=== PATIENT | female | born 1980 | race Caucasian/White ===

== ENCOUNTER 2017-06-08 13:40 | Outpatient (CLI) | payer BC ==
[~2017-06-08] VITALS: Ht 177.8 cm; Wt 112.9 kg
[~2017-06-08 13:40] MED LIST: ACHYD1T PO; CLC500CT PO; DCS100C PO; IBP800T PO; PREN-115 PO
[2017-06-08 14:00] VITALS: BP 115/74
[2017-06-08] MEDS ORDERED: D5 LR IV SOLUTION 1,000 ML IV SCH (14:45)
[2017-06-08 15:08] LABS: BASOPHILS % (AUTO) 0 % (0-10); EOSINOPHILS # (AUTO) 0.1 10^3/uL (0.0-0.3); EOSINOPHILS % (AUTO) 1 % (0-10); HEMATOCRIT 34 % (35-52); HEMOGLOBIN 11.6 G/DL (11.5-16.0); LYMPHOCYTES # (AUTO) 1.1 X 10^3 (1.0-4.0); LYMPHOCYTES % (AUTO) 13 % (12-44); MEAN CORPUSCULAR HEMOGLOBIN 31 PG (25-34); MEAN CORPUSCULAR HGB CONC 35 G/DL (32-36); MEAN CORPUSCULAR VOLUME 90 FL (80-99); MEAN PLATELET VOLUME 10.8 FL (7.4-10.4); MONOCYTES # (AUTO) 0.8 X 10^3 (0.0-1.0); MONOCYTES % (AUTO) 9 % (0-12); NEUTROPHILS # (AUTO) 6.8 X 10^3 (1.8-7.8); NEUTROPHILS % (AUTO) 78 % (42-75); PLATELET COUNT 245 10^3/uL (130-400); RED BLOOD COUNT 3.72 10^6/uL (4.35-5.85); RED CELL DISTRIBUTION WIDTH 13.4 % (10.0-14.5); WHITE BLOOD COUNT 8.7 10^3/uL (4.3-11.0)
[2017-06-08 15:32] LABS: ALANINE AMINOTRANSFERASE 13 U/L (0-55); ALBUMIN 3.4 GM/DL (3.2-4.5); ALKALINE PHOSPHATASE 85 U/L (40-136); BILIRUBIN,TOTAL 0.8 MG/DL (0.1-1.0); BUN/CREATININE RATIO 10; CALCIUM 9.2 MG/DL (8.5-10.1); CARBON DIOXIDE 20 MMOL/L (21-32); CHLORIDE 106 MMOL/L (98-107); CREATININE SERUM 0.58 MG/DL (0.60-1.30); GFR ESTIMATED > 60; GLUCOSE 94 MG/DL (70-105); POTASSIUM 3.7 MMOL/L (3.6-5.0); SODIUM 137 MMOL/L (135-145); TOTAL PROTEIN 6.3 GM/DL (6.4-8.2); URIC ACID 4.5 MG/DL (2.6-7.2)
--- NOTE | 2017-06-11 15:51 | Physician Query-Final Dx ---
MAGALY MAHAN 06/11/17 1551: Clinic Account Progress/Dx Physician Query: Please give diagnosis Date of Service Jun 08, 2017 at 13:40 MANISHA BARRIENTOS MD 06/12/17 0802: Clinic Account Progress/Dx DIAGNOSIS: Diagnosis false labor MAGALY MAHAN Jun 11, 2017 15:51 MANISHA BARRIENTOS MD Jun 12, 2017 08:02
== END 2017-06-08 17:00 | disposition home or self-care (01) ==
LOC: LDRP 13:40 → WSo 13:40
PROVIDERS: ATTEND Obstetrics & Gynecology
DX: O47.1 False labor at or after 37 completed weeks of gestation (principal); Z3A.37 37 weeks gestation of pregnancy
CPT/HCPCS: 36415; 80053; 82570; 83615; 84156; 84550; 85025; 96360; 96361; 99214

== ENCOUNTER 2017-06-11 11:50 | Inpatient (IN) | payer BC ==
[~2017-06-11] VITALS: Ht 177.8 cm; Wt 112.0 kg
[2017-06-11 12:30] VITALS: BP 121/75
[2017-06-11 12:45] LABS: BILIRUBIN,URINE NEGATIVE (NEGATIVE); CLARITY,URINE CLEAR; COLOR,URINE YELLOW; GLUCOSE, URINE (UA) NEGATIVE (NEGATIVE); KETONES,URINE NEGATIVE (NEGATIVE); LEUKOCYTE ESTERASE ,URINE 1+ (NEGATIVE); NITRITE,URINE NEGATIVE (NEGATIVE); PH,URINE 8 (5-9); PROTEIN,URINE NEGATIVE (NEGATIVE); UROBILINOGEN,URINE NORMAL (NORMAL)
[2017-06-11 12:58] LABS: WBC,URINE 0-2 /HPF
[2017-06-11 12:59] LABS: BACTERIA,URINE MODERATE /HPF
[2017-06-11] MEDS ORDERED: LACTATED RINGERS 1,000 ML IV PRN (13:05)
[2017-06-11] MEDS ORDERED: METOCLOPRAMIDE INJ 10 MG/2 ML (REGLAN) IV ONE (13:15)
[2017-06-11] MEDS ORDERED: FAMOTIDINE 20MG/2ML IV (PEPCID) IV ONE (13:15)
[2017-06-11] MEDS ORDERED: CITRIC ACID/SOB CIT (BICITRA) 30 ML UDC PO ONE (13:15)
[2017-06-11] MEDS ORDERED: CATHETER FLUSH 10 ML SYR IV PRN (13:15)
--- OUTSIDE RECORDS SUMMARY | 2017-06-11 14:29 | XMS REPORT | Continuity of Care Document ---
Author Author [facility] Organization [facility] Address Unknown Phone Unavailable Allergies Active Description Code Type Severity Reaction Onset Reported/Identified Relationship to Patient Clinical Status Yes amoxicillin [id number] Drug Allergy Unknown N/A 11/13/2012 Yes ibuprofen [id number] Drug Allergy Unknown N/A 11/13/2012 Yes Nicotine Polacrilex [id number] Drug Allergy Unknown N/A 11/13/2012 Yes phenytoin sodium [id number] Drug Allergy Unknown N/A 11/13/2012 Yes Phenytoin Sodium Extended [id number] Drug Allergy Unknown N/A 11/13/2012 Yes sulfamethoxazole [id number] Drug Allergy Unknown N/A 11/13/2012 Yes trimethoprim [id number] Drug Allergy Unknown N/A 11/13/2012 Medications There is no data. Problems Date Dx Coded Attending Type Code Diagnosis Diagnosed By 11/16/2012 MANISHA BARRIENTOS MD Ot 642.41 MILD/NOS PREECLAMP-DELIV 11/16/2012 MANISHA BARRIENTOS MD Ot 652.51 HIGH HEAD AT TERM-DELIV 11/16/2012 MANISHA BARRIENTOS MD Ot 653.41 FETOPELV DISPROPOR-DELIV 11/16/2012 MANISHA BARRIENTOS MD Ot 660.01 OBSTRUC/FET MALPOS-DELIV 11/16/2012 MANISHA BARRIENTOS MD Ot 660.11 BONY PELV OBSTRUCT-DELIV 11/16/2012 MANISHA BARRIENTOS MD Ot 661.21 UTERINE INERT NEC-DELIV 11/16/2012 MANISHA BARRIENTOS MD Ot V07.2 PROPHYLACT IMMUNOTHERAPY 11/16/2012 MANISHA BARRIENTOS MD Ot V27.0 DELIVER-SINGLE LIVEBORN 01/17/2016 MANISHA BARRIENTOS MD, Ot 642.43 MILD/NOS PREECLAMP-ANTEP 01/17/2016 MANISHA BARRIENTOS MD Ot V28.9 SCREENING NOS 03/30/2017 MANISHA BARRIENTOS MD Ot 642.43 MILD/NOS PREECLAMP-ANTEP 03/30/2017 MANISHA BARRIENTOS MD, Ot V28.9 SCREENING NOS 04/05/2017 MANISHA BARRIENTOS MD Ot O36.0930 MATERNAL CARE FOR OTH RHESUS ISOIMMUN, T 04/16/2017 MANISHA BARRIENTOS MD, Ot O36.0930 MATERNAL CARE FOR OTH RHESUS ISOIMMUN, T Procedures Code Description Performed By Performed On 73.4 MEDICAL INDUCTION LABOR 11/13/2012 74.1 LOW CERVICAL 11/13/2012 Results Test Result Range RH IMMUNE GLOBULIN RHOPHYLAC - 03/30/17 14:54 RH IMMUNE GLOBULIN RHOPHYLAC PRSMD TRFSD 03/30/17 1507 NRG [id number] - 03/30/17 14:54 [id number] 1 300ug NRG Lot number - 03/30/17 14:54 Lot number [id number] NRG cell screen - 03/30/17 14:54 cell screen 12/21/18 NRG Urine protein/creatinine mass ratio - 06/08/17 14:20 Urine protein measurement (mass/volume) 15 mg/dL 6-12 Urine creatinine measurement (mass/volume) 179 mg/dL 30- 125 Urine protein/creatinine mass ratio 0.08 NRG Complete blood count (CBC) with automated white blood cell (WBC) differential - 06/08/17 14:55 Blood leukocytes automated count (number/volume) 8.7 10*3/uL 4.3-11.0 Blood erythrocytes automated count (number/volume) 3.72 10*6/uL 4.35-5.85 Venous blood hemoglobin measurement (mass/volume) 11.6 g/dL 11.5-16.0 Blood hematocrit (volume fraction) 34 % 35-52 Automated erythrocyte mean corpuscular volume 90 [foz_us] 80-99 Automated erythrocyte mean corpuscular hemoglobin (mass per erythrocyte) 31 pg 25-34 Automated erythrocyte mean corpuscular hemoglobin concentration measurement ( mass/volume) 35 g/dL 32-36 Automated erythrocyte distribution width ratio 13.4 % 10.0-14.5 Automated blood platelet count (count/volume) 245 10*3/uL 130-400 Automated blood platelet mean volume measurement 10.8 [foz_us] 7.4-10.4 Automated blood neutrophils/100 leukocytes 78 % 42-75 Automated blood lymphocytes/100 leukocytes 13 % 12-44 Blood monocytes/100 leukocytes 9 % 0-12 Automated blood eosinophils/100 leukocytes 1 % 0-10 Automated blood basophils/100 leukocytes 0 % 0-10 Blood neutrophils automated count (number/volume) 6.8 10*3 1.8-7.8 Blood lymphocytes automated count (number/volume) 1.1 10*3 1.0-4.0 Blood monocytes automated count (number/volume) 0.8 10*3 0.0-1.0 Automated eosinophil count 0.1 10*3/uL 0.0-0.3 Automated blood basophil count (count/volume) 0.0 10*3/uL 0.0-0.1 [id number] - 06/08/17 14:55 [id number] SPECIMEN AVAILABLE [facility] Comprehensive metabolic panel - 06/08/17 14:55 Serum or plasma sodium measurement (moles/volume) 137 mmol/L 135-145 Serum or plasma potassium measurement (moles/volume) 3.7 mmol/L 3.6-5.0 Serum or plasma chloride measurement (moles/volume) 106 mmol/L 98-107 Carbon dioxide 20 mmol/L 21-32 Serum or plasma anion gap determination (moles/volume) 11 mmol/L 5-14 Serum or plasma urea nitrogen measurement (mass/volume) 6 mg/dL 7-18 Serum or plasma creatinine measurement (mass/volume) 0.58 mg/dL 0.60-1.30 Serum or plasma urea nitrogen/creatinine mass ratio 10 [facility] Serum or plasma creatinine measurement with calculation of estimated glomerular filtration rate > [facility] Serum or plasma glucose measurement (mass/volume) 94 mg/dL 70-105 Serum or plasma calcium measurement (mass/volume) 9.2 mg/dL 8.5-10.1 Serum or plasma total bilirubin measurement (mass/volume) 0.8 mg/dL 0.1-1.0 Serum or plasma alkaline phosphatase measurement (enzymatic activity/volume) 85 U/L 40-136 Serum or plasma aspartate aminotransferase measurement (enzymatic activity/ volume) 14 U/L 5-34 Serum or plasma alanine aminotransferase measurement (enzymatic activity/volume ) 13 U/L 0-55 Serum or plasma protein measurement (mass/volume) 6.3 g/dL 6.4-8.2 Serum or plasma albumin measurement (mass/volume) 3.4 g/dL 3.2-4.5 Serum or plasma uric acid measurement (mass/volume) - 06/08/17 14:55 Serum or plasma uric acid measurement (mass/volume) 4.5 mg/dL 2.6-7.2 Lactate dehydrogenase 1 [enzymatic activity/volume] in serum or plasma - 14:55 Lactate dehydrogenase 1 [enzymatic activity/volume] in serum or plasma 202 U/L 125-220 Complete urinalysis with reflex to culture - 06/11/17 12:25 Urine color determination YELLOW NRG Urine clarity determination CLEAR NRG Urine pH measurement by test strip 8 5-9 Specific gravity of urine by test strip 1.010 1.016- 1.022 Urine protein assay by test strip, semi-quantitative NEGATIVE NEGATIVE Urine glucose detection by automated test strip NEGATIVE NEGATIVE Erythrocytes detection in urine sediment by light microscopy NEGATIVE NEGATIVE Urine ketones detection by automated test strip NEGATIVE NEGATIVE Urine nitrite detection by test strip NEGATIVE NEGATIVE Urine total bilirubin detection by test strip NEGATIVE NEGATIVE Urine urobilinogen measurement by automated test strip (mass/volume) NORMAL NORMAL Urine leukocyte esterase detection by dipstick 1+ NEGATIVE Automated urine sediment erythrocyte count by microscopy (number/high power field) NONE NRG Automated urine sediment leukocyte count by microscopy (number/high power field ) [HPF] NRG Bacteria detection in urine sediment by light microscopy MODERATE NRG Squamous epithelial cells detection in urine sediment by light microscopy 2-5 NRG Crystals detection in urine sediment by light microscopy NONE NRG Casts detection in urine sediment by light microscopy NONE NRG Mucus detection in urine sediment by light microscopy NEGATIVE NRG Complete urinalysis with reflex to culture NO NRG Encounters ACCT No. Visit Date/Time Discharge Status Pt. Type Provider Facility Loc./Unit Complaint [id number] 06/08/2017 13:40:00 06/08/2017 17:00:00 DIS Outpatient MANISHA BARRIENTOS MD [facility] WSo CONTRACTIONS [id number] 03/30/2017 14:32:00 03/30/2017 23:59:59 CLS Outpatient MANISHA BARRIENTOS MD [facility] WSo RH NEGATIVE [id number] 11/13/2012 07:00:00 11/16/2012 13:15:00 DIS Inpatient MANISHA BARRIENTOS MD [facility] WS LABOR [id number] 11/12/2012 14:04:00 11/12/2012 23:59:59 CLS Outpatient MANISHA BARRIENTOS MD [facility] LABT Abnormal finding on screening, [id number] 11/05/2012 16:23:00 11/05/2012 23:59:59 CLS Outpatient MANISHA BARRIENTOS MD [facility] LABT [id number] 06/11/2017 13:00:00 Document Registration
[2017-06-11 14:41] LABS: BASOPHILS % (AUTO) 0 % (0-10); EOSINOPHILS # (AUTO) 0.1 10^3/uL (0.0-0.3); EOSINOPHILS % (AUTO) 1 % (0-10); HEMATOCRIT 36 % (35-52); HEMOGLOBIN 12.3 G/DL (11.5-16.0); LYMPHOCYTES # (AUTO) 1.1 X 10^3 (1.0-4.0); LYMPHOCYTES % (AUTO) 13 % (12-44); MEAN CORPUSCULAR HEMOGLOBIN 31 PG (25-34); MEAN CORPUSCULAR HGB CONC 34 G/DL (32-36); MEAN CORPUSCULAR VOLUME 90 FL (80-99); MEAN PLATELET VOLUME 10.8 FL (7.4-10.4); MONOCYTES # (AUTO) 0.6 X 10^3 (0.0-1.0); MONOCYTES % (AUTO) 7 % (0-12); NEUTROPHILS # (AUTO) 6.7 X 10^3 (1.8-7.8); NEUTROPHILS % (AUTO) 79 % (42-75); PLATELET COUNT 238 10^3/uL (130-400); RED CELL DISTRIBUTION WIDTH 13.5 % (10.0-14.5); WHITE BLOOD COUNT 8.5 10^3/uL (4.3-11.0)
[2017-06-11] MEDS ORDERED: OXYTOCIN/NORMAL SALINE 500 ML IV ONE (15:09)
[2017-06-11] MEDS ORDERED: LACTATED RINGERS 1,000 ML IV ONE (15:14)
[2017-06-11] MEDS ORDERED: fentaNYL INJECTION 100 MCG/2 ML AMP INJ ONE (15:15)
[2017-06-11] MEDS ORDERED: ONDANSETRON 4 MG/2 ML (SDV) Z0FRAN IV PRN (15:15)
[2017-06-11] MEDS ORDERED: NALOXONE 0.4 MG/ML 1 ML (NARCAN) VIAL IV PRN ×2 (15:15)
[2017-06-11] MEDS ORDERED: METOCLOPRAMIDE INJ 10 MG/2 ML (REGLAN) IV PRN (15:15)
[2017-06-11] MEDS ORDERED: diphenhydrAMINE 50 MG/ML INJ (BENADRYL) IV PRN (15:15)
[2017-06-11 15:20] VITALS: BP 133/72
[2017-06-11] MEDS ORDERED: metroNIDAZOLE 500MG/100ML IVPB 100 ML IV ONE (15:30)
[2017-06-11] MEDS ORDERED: MEPERIDINE (DEMEROL) INJ 100 MG/ML IM PRN (15:30)
[2017-06-11] MEDS ORDERED: ONDANSETRON 4 MG/2 ML (SDV) Z0FRAN IVP PRN (15:30)
[2017-06-11] MEDS ORDERED: ceFAZolin 2 GM/50 ML NS 50 ML IV ONE (15:30)
[2017-06-11] MEDS ORDERED: TETANUS,DIPTH,PERTUSS P/F (BOOSTRIX) 0.5 ML VIAL IM ONE (15:30)
[2017-06-11] MEDS ORDERED: MEASLES,MUMPS,RUBELLA 1 EA INJ SC ONE (15:30)
[2017-06-11] MEDS ORDERED: PROMETHAZINE INJ 25 MG/ML (PHENERGAN) AMP IM PRN (15:30)
--- NOTE | 2017-06-11 15:33 | History & Physical ---
History and Physical Date Seen by Provider: Jun 11, 2017 Time Seen by Provider: 15:29 this patient is a 36-year-old 2 white female who presented with complaint of bruising and pain above her pubic bone. Her history is significant for 2 previous C-sections. She indicates that the discomfort started on the weekend it has progressed to a point where she feels bruised. There is an obvious bruise in the right half of the mons. This is concerning for uterine and/or scar separation. Patient is also have not regular contractions. She denies rupture membranes or bleeding. GBS culture was negative. Allergies are to [place] percent amoxicillin and Bactrim and Dilantin Medications are vitamins Atarax Past medical history, past surgical history, obstetric history, family history, social histories are per the antepartum record HEENT exam is normal Neck supple no lymphadenopathy no thyromegaly Abdomen gravid soft nontender nondistended - there is evidence of fresh bleeding as I evidence by some ecchymoses in the right half of the mons under the previous Pfannenstiel incisional scar Extremities show no clubbing cyanosis. There is no Homans sign. Pelvic exam is deferred Extremities show no clubbing or cyanosis. There is no Homans sign. Laboratory Tests Test 06/11/17 12:25 06/11/17 14:25 Range/Units Urine Color YELLOW Urine Clarity CLEAR Urine pH 8 5-9 Urine Specific [place] 1.010 L 1.016-1.022 Urine Protein NEGATIVE NEGATIVE Urine Glucose (UA) NEGATIVE NEGATIVE Urine Ketones NEGATIVE NEGATIVE Urine Nitrite NEGATIVE NEGATIVE Urine Bilirubin NEGATIVE NEGATIVE Urine Urobilinogen NORMAL NORMAL MG/DL Urine Leukocyte Esterase 1+ H NEGATIVE Urine RBC (Auto) NEGATIVE NEGATIVE Urine RBC NONE /HPF Urine WBC 0-2 /HPF Urine Squamous Epithelial Cells 2-5 /HPF Urine Crystals NONE /LPF Urine Bacteria MODERATE H /HPF Urine Casts NONE /LPF Urine Mucus NEGATIVE /LPF Urine Culture Indicated NO White Blood Count 8.5 4.3-11.0 10^3/uL Red Blood Count 4.00 L 4.35-5.85 10^6/uL Hemoglobin 12.3 11.5-16.0 G/DL Hematocrit 36 35-52 % Mean Corpuscular Volume 90 80-99 FL Mean Corpuscular Hemoglobin 31 25-34 PG Mean Corpuscular Hemoglobin Concent 34 32-36 G/DL Red Cell Distribution Width 13.5 10.0-14.5 % Platelet Count 238 130-400 10^3/uL Mean Platelet Volume 10.8 H 7.4-10.4 FL Neutrophils (%) (Auto) 79 H 42-75 % Lymphocytes (%) (Auto) 13 12-44 % Monocytes (%) (Auto) 7 0-12 % Eosinophils (%) (Auto) 1 0-10 % Basophils (%) (Auto) 0 0-10 % Neutrophils # (Auto) 6.7 1.8-7.8 X 10^3 Lymphocytes # (Auto) 1.1 1.0-4.0 X 10^3 Monocytes # (Auto) 0.6 0.0-1.0 X 10^3 Eosinophils # (Auto) 0.1 0.0-0.3 10^3/uL Basophils # (Auto) 0.0 0.0-0.1 10^3/uL lab work is normal. Assessment and plan Term at 38-2/7 weeks' gestation with likely uterine and/or fascial scar separation at her previous incision site. plan is to proceed now with delivery uterine scar separation at 38-2/7 weeks' gestation Allergies and Home Medications Allergies Coded Allergies: Nicotine Polacrilex (Verified Allergy, Unknown, 06/11/17) Phenytoin Sodium Extended (Verified Allergy, Unknown, 06/11/17) amoxicillin (Verified Allergy, Unknown, 06/11/17) ibuprofen (Verified Allergy, Unknown, 06/11/17) phenytoin sodium (Verified Allergy, Unknown, 06/11/17) sulfamethoxazole (Verified Allergy, Unknown, 06/11/17) trimethoprim (Verified Allergy, Unknown, 06/11/17) Home Medications Vit #108/Iron/Fa 1 Each Tablet, 1 EACH PO DAILY, (Reported) MANISHA BARRIENTOS MD Jun 11, 2017 3:33 pm
[2017-06-11] MEDS ORDERED: KETOROLAC 30 MG/ML VIAL ONE (16:08)
[2017-06-11] MEDS ORDERED: OXYTOCIN/NORMAL SALINE 1,000 ML IV ONE (16:15)
[2017-06-11] MEDS: KETOROLAC 30 MG/ML VIAL IVP SCH ×2 (16:43→22:55)
[2017-06-11] MEDS: OXYTOCIN/NORMAL SALINE 500 ML IV SCH ×2 (17:02→20:45)
[2017-06-11 20:30] VITALS: BP 113/63
[2017-06-11] MEDS: DOCUSATE SODIUM 100 MG (COLACE) CAP PO SCH (20:42)
[2017-06-11] MEDS: D5 LR IV SOLUTION 1,000 ML IV ONE (21:03)
[2017-06-11] MEDS: oxyCODONE/APAP 10/325MG (PERCOCET 10) TABLET PO PRN (22:16)
[2017-06-11 23:36] VITALS: BP 107/65
[2017-06-12] MEDS: D5 LR IV SOLUTION 1,000 ML IV ONE (00:50)
--- NOTE | 2017-06-12 03:48 | OPERATIVE REPORT ---
DATE OF SERVICE: 06/11/2017 PREOPERATIVE DIAGNOSIS: Term at 38 and 2/7 weeks' gestation with signs and indications of uterine scar separation, and with regular frequent and painful contractions and with two previous C-sections. POSTOPERATIVE DIAGNOSIS: Term at 38 and 2/7 weeks' gestation with signs and indications of uterine scar separation, and with regular frequent and painful contractions and with two previous C-sections with partial scar separation on the right side of the uterus. OPERATIVE PROCEDURE: Repeat low transverse delivery of a viable female infant with Apgars of 8 and 9 at 1 and 5 minutes respectively. Weight of 8 pounds 5 ounces, and a time was 15:55. Cord blood had a pH of 7.31. OPERATIVE DESCRIPTION: With the patient in supine position under satisfactory spinal anesthesia, she was prepped and draped in the usual fashion for abdominal surgery. Juan catheter was placed in the urinary bladder. A repeat Pfannenstiel incision made through the skin with a scalpel. The patient's abdomen was entered in the usual manner. Bladder retractor placed in position and clean scalpel used to make a 4 cm hysterotomy incision transversely across the lower uterine segment. The right third of the lower uterine segment was involved fairly extensively with couvelear uterus changes. There was separation of the uterine myometrial fibers in the right third where her previous incision was consistent with the beginning of a uterine scar separation. The incision was made in that area and extended bluntly. Copious clear fluid was released on hysterotomy and then Meza forceps were applied to facilitate delivery of a female . Stats were noted above. The was bulb suctioned on delivery of the head and nuchal cord was easily released as delivery completed, and the infant bulb suctioned again as the cord was doubly clamped and cut, and the infant was then passed to the pediatric nurse in attendance for delivery. Cord bloods were obtained. The placenta delivered fairly promptly spontaneously Juan. It was normal with a 3-vessel cord. The uterus was exteriorized. The interior wiped clean with a wet laparotomy sponge. Uterine incision then closed with a running lock suture of 2-0 Vicryl. The uterus was quite large. It was returned to the abdominal cavity with persistent pressure to allow to collapse and fall back into the pelvis. With hemostasis assured, sponge and needle counts correct, the anterior parietal peritoneum was then closed with a running suture of 2-0 Vicryl. The rectus muscles were closed with that suture as well. The rectus fascia was closed with 2-0 Vicryl, subcutaneous tissue with 2-0 Vicryl and the skin was stapled. Sponge and needle counts were correct at the end of procedure. Estimated blood loss for procedure was around 650 mL. The patient tolerated the procedure well and recovered in the recovery room. The baby was taken to the full term nursery under the care of the pediatric nurse. Job ID: [id number] DocumentID: [id number] Dictated Date: 06/11/2017 16:27:08 Film Spooler Date: 06/12/2017 03:02:08 Dictated By: MANISHA BARRIENTOS MD MTDD
[2017-06-12 04:00] VITALS: BP 108/68
[2017-06-12] MEDS: oxyCODONE/APAP 10/325MG (PERCOCET 10) TABLET PO PRN ×5 (04:13→23:50)
[2017-06-12] MEDS: KETOROLAC 30 MG/ML VIAL IVP SCH (06:02)
--- NOTE | 2017-06-12 08:01 | Progress Note-Standard ---
Standard Progress Note Progress Notes/Assess & Plan Date Seen by Provider: Jun 12, 2017 Time Seen by Provider: 07:59 Progress/Assessment & Plan this patient is without complaint. She is ambulating, voiding, tolerating oral intake, has good pain control. Patient denies chest pain, denies shortness of breath, denies nausea vomiting, and denies headache. Vital Signs Date Time Temp Pulse Resp B/P (MAP) Pulse Ox O2 Delivery O2 Flow Rate FiO2 06/12/17 04:00 96.0 75 18 108/68 (81) Room Air 06/11/17 23:36 99.0 78 18 107/65 (79) 96 Room Air 06/11/17 20:30 96.5 91 18 113/63 (80) 97 Room Air 06/11/17 15:20 96 18 133/72 (92) Room Air 06/11/17 12:30 96.4 86 18 121/75 (90) Room Air I & O 06/12/17 07:00 Intake Total 4250 ml Output Total 3050 ml Balance 1200 ml vital signs are stable. Patient is afebrile. The abdomen is benign. The surgical incision is clean dry and intact. Fundus is firm below the umbilicus and nontender. Extremities show no clubbing cyanosis. There is no Homans sign. There is some pretibial pitting edema that is normal. Assessment and plan post operative day number 1 status post repeat doing well. Patient will have routine convalescence care today and consider for discharge home tomorrow MANISHA BARRIENTOS MD Jun 12, 2017 8:01 am
[2017-06-12] MEDS: DOCUSATE SODIUM 100 MG (COLACE) CAP PO SCH (09:06)
[2017-06-12 09:10] VITALS: BP 103/64
[2017-06-12] MEDS ORDERED: IBUPROFEN 800 MG (MOTRIN) TAB PO ONE (11:47)
[2017-06-12 11:50] VITALS: BP 112/73
[2017-06-12] MEDS: IBUPROFEN 800 MG (MOTRIN) TAB PO SCH ×3 (11:50→23:49)
--- NOTE | 2017-06-12 13:32 | Anesthesia-Regional Post-Op ---
Regional Patient Condition Mental Status: Alert, Oriented x3 Circulation: Same as Pre-Op Headache: Absent Sensation: Full Recovery Motor Block: Absent Post Op Complications Complications None Follow Up Care/Instructions Patient Instructions None needed. Anesthesia/Patient Condition Patient is doing well, no complaints, stable vital signs, no apparent adverse anesthesia problems. No complications reported per nursing. D/C home per [facility] Criteria: Yes EVELYN JAMISON CRNA Jun 12, 2017 13:32
[2017-06-12 17:55] VITALS: BP 116/74
[2017-06-12 23:55] VITALS: BP 118/72
[2017-06-13] MEDS: IBUPROFEN 800 MG (MOTRIN) TAB PO SCH ×3 (05:39→19:03)
[2017-06-13] MEDS: oxyCODONE/APAP 10/325MG (PERCOCET 10) TABLET PO PRN ×4 (05:39→21:22)
[2017-06-13 05:40] VITALS: BP 100/59
--- NOTE | 2017-06-13 08:03 | Progress Note-Standard ---
Standard Progress Note Progress Notes/Assess & Plan Date Seen by Provider: Jun 13, 2017 Time Seen by Provider: 08:02 Progress/Assessment & Plan this patient is without complaint. She is ambulating, voiding, tolerating oral intake, has good pain control. Patient denies chest pain, denies shortness of breath, denies nausea vomiting, and denies headache. Vital Signs Date Time Temp Pulse Resp B/P (MAP) Pulse Ox O2 Delivery O2 Flow Rate FiO2 06/12/17 04:00 96.0 75 18 108/68 (81) Room Air 06/11/17 23:36 99.0 78 18 107/65 (79) 96 Room Air 06/11/17 20:30 96.5 91 18 113/63 (80) 97 Room Air 06/11/17 15:20 96 18 133/72 (92) Room Air 06/11/17 12:30 96.4 86 18 121/75 (90) Room Air I & O 06/12/17 07:00 Intake Total 4250 ml Output Total 3050 ml Balance 1200 ml vital signs are stable. Patient is afebrile. The abdomen is benign. The surgical incision is clean dry and intact. Fundus is firm below the umbilicus and nontender. Extremities show no clubbing cyanosis. There is no Homans sign. There is some pretibial pitting edema that is normal. Assessment and plan post operative day number 1 status post repeat doing well. Patient will have routine convalescence care today and consider for discharge home tomorrow June 13, 2017 Patient is without complaint. She is ambulating, voiding, tolerating fairly well, has good pain control. Vital Signs Date Time Temp Pulse Resp B/P (MAP) Pulse Ox O2 Delivery O2 Flow Rate FiO2 06/13/17 05:40 97.9 77 18 100/59 (73) 06/12/17 23:55 96.8 76 18 118/72 (87) 100 Room Air 06/12/17 17:55 96.8 74 18 116/74 (88) 100 Room Air 06/12/17 11:50 96.5 79 18 112/73 (86) 97 Room Air 06/12/17 09:10 98.0 87 18 103/64 (77) 97 Room Air I & O 06/13/17 07:00 Intake Total 1800 ml Output Total 2900 ml Balance -1100 ml Vital signs are stable. Patient is afebrile. The abdomen is benign. The incision is clean dry and intact. Extremities show no clubbing or cyanosis. There is no Homans sign. Assessment and plan postoperative day number 2 status post repeat doing well. Plan is for routine convalescence care with discharge home today or tomorrow as preferred by patient Final Diagnosis repeat MANISHA BARRIENTOS MD Jun 13, 2017 8:03 am
[2017-06-13] MEDS ORDERED: IBUP-1780 PO (08:05)
[2017-06-13] MEDS ORDERED: OXYC-465 PO (08:05)
[2017-06-13] MEDS ORDERED: DOCU100C37 PO (08:05)
--- NOTE | 2017-06-13 08:06 | Discharge Instructions ---
Discharge Instructions Discharge Medications New, Converted or Re-Newed RX: RX on Chart Patient Instructions Patient Instructions: as directed Return to The Hospital For: as directed Activity & Diet Discharge Diet: No Restrictions Activity as Tolerated: No Orders-Post D/C & Referrals Follow Up Appt: RTC 1 week for incision check. Call to make follow up appt. for patient in 4 weeks. Wound Care: Remove lisha, apply benzoin and steri strips. Activity Per routine post instructions. Diet as tolerated Patient may shower or tub bathe as desired. Continue home meds MANISHA BARRIENTOS MD Jun 13, 2017 8:06 am
[2017-06-13 08:41] VITALS: BP 104/62
[2017-06-13] MEDS: DOCUSATE SODIUM 100 MG (COLACE) CAP PO SCH ×2 (09:48→20:11)
[2017-06-13] MEDS ORDERED: TETANUS,DIPTH,PERTUSS P/F (BOOSTRIX) 0.5 ML VIAL IM ONE (10:09)
[2017-06-13 11:30] VITALS: BP 114/69
[2017-06-13 16:41] VITALS: BP 129/82
[2017-06-13 21:24] VITALS: BP 112/65
[2017-06-14] MEDS: oxyCODONE/APAP 10/325MG (PERCOCET 10) TABLET PO PRN (02:49)
[2017-06-14] MEDS: IBUPROFEN 800 MG (MOTRIN) TAB PO SCH ×2 (02:50→08:08)
[2017-06-14 04:20] VITALS: BP 110/72
[2017-06-14 08:00] VITALS: BP 112/70
--- NOTE | 2017-06-14 08:01 | Discharge Summary ---
Discharge Summary term repeat this patient is a 36-year-old white female who is admitted in labor at 38 weeks gestation. She had 2 previous C-sections. She was taken the operating room for repeat . That procedure was performed without event patient recovered uneventfully. On postoperative day number 1 the patient is ambulating, voiding, tolerating by mouth pain control. She had routine care today. On postoperative day 2 the patient was unchanged. On postoperative day number 3 the patient again is stable she is ambulating, voiding, tolerating by mouth well, has good pain control and is requesting discharge home. Principal diagnosis this hospitalization is term operative delivery/ Secondary diagnoses are previous C-sections 2, spontaneous labor Operations and procedures include monitoring spinal analgesia repeat C- section Patient was given appropriate discharge instructions verbally and in writing and a copy was placed in the chart. Discharge medications are Percocet and Motrin and Colace. Clinical Quality Measures DVT/VTE Risk/Contraindication: Risk Factor Score Per Nursin RFS Level Per Nursing on Admit: 1=Low/No VTE PPX MANISHA BARRIENTOS MD Jun 14, 2017 8:01 am
[2017-06-14] MEDS: DOCUSATE SODIUM 100 MG (COLACE) CAP PO SCH (08:08)
== END 2017-06-14 11:15 | disposition home or self-care (01) | DRG 766 ==
LOC: LDRP 11:50 → WSo 11:50 → LDRP 13:03
PROVIDERS: ADMIT Obstetrics & Gynecology; ATTEND Obstetrics & Gynecology
PROC: 10D00Z1 Extraction of Products of Conception, Low, Open Approach (ICD-10-PCS; principal; 2017-06-11 15:28)
DX: O90.0 Disruption of cesarean delivery wound (principal); Z37.0 Single live birth; Z3A.38 38 weeks gestation of pregnancy; Z23 Encounter for immunization
CPT/HCPCS: 36415; 81000; 83033; 85025; 86850; 86900; 86901; 87088; 90715; 94664